=== PATIENT | female | born 1995 | race Caucasian/White ===

== ENCOUNTER 2018-06-21 08:52 | Emergency (ER) | payer OTHER ==
[2018-06-21 12:04] VITALS: BP 125/72
== END 2018-06-21 12:04 | disposition home or self-care (01) ==
LOC: ED 08:52
DX: J03.90 Acute tonsillitis, unspecified (principal)
CPT/HCPCS: J0696

== ENCOUNTER 2020-04-06 07:36 | Emergency (ER) | payer OTHER ==
[2020-04-06 08:06] VITALS: Ht 149.9 cm
[2020-04-06 09:16] VITALS: BP 124/72
== END 2020-04-06 09:16 | disposition home or self-care (01) ==
LOC: ED 07:36
DX: S93.602A Unspecified sprain of left foot, initial encounter (principal); X58.XXXA Exposure to other specified factors, initial encounter; Y93.89 Activity, other specified; Y92.89 Other specified places as the place of occurrence of the external cause; Y99.8 Other external cause status